=== PATIENT | female | born 1965 | race Caucasian/White ===

== ENCOUNTER → 2017-09-01 15:41 | Outpatient (REF) | payer BC, SELFPAY ==
[2017-09-01 16:16] LABS: Basophils % 0.5 % (0.1-2.0); Eosinophils # 0.1 K/mm3 (0.0-0.4); Hemoglobin 9.7 g/dL (12.2-16.2); Lymphocytes % 31.9 K/mm3 (10-50); Mean Corpuscular HGB Conc 31.4 g/dL (31.8-35.4); Mean Corpuscular Hemoglobin 22.9 pg (27.0-31.2); Mean Platelet Volume 7.3 fl (7.4-10.4); Monocytes # 0.5 K/mm3 (0.1-1.0); Monocytes % 7.8 % (1.7-9.3); Neutrophils # 3.7 K/mm3 (1.8-7.8); Neutrophils % 57.9 % (37.0-80.0); Platelet Count 444 K/mm3 (142-424); Red Blood Count 4.24 M/mm3 (4.20-5.40); Red Cell Distribution Width 14.8 % (11.5-17.5); White Blood Count 6.3 K/mm3 (4.8-10.8)
== END ==
LOC: LAB 15:41
PROVIDERS: Visit Provider Internal Medicine
DX: D50.9 Iron deficiency anemia, unspecified (principal)
CPT/HCPCS: 85025

== ENCOUNTER → 2018-01-07 15:34 | Outpatient (CLI) | payer BC, SELFPAY ==
--- NOTE | 2018-01-07 16:30 | MM_ITS ---
MM Dig screening mamm BI w/CAD CAD Screening COMPARISON: Digital mammograms with CAD 10/01/2016 and 02/14/2015 INDICATION: There is no personal or family history of breast cancer TECHNIQUE: Standard CC and MLO images were obtained. R2 CAD reviewed. FINDINGS: Moderate diffuse fibroglandular densities are seen in the central portions of both breast. Again noted is a biopsy clip left breast. There is no new or suspicious lesion in either breast and no suspicious microcalcifications. IMPRESSION: Moderate breast density with no suspicious lesion seen BI-RADS Category: 2 Benign Finding(s) RECOMMENDED FOLLOW-UP: 1YR - 1 YEAR FOLLOW-UP (A letter has been sent to the patient regarding results of the study.)
== END ==
PROVIDERS: PCP Internal Medicine; Visit Provider Internal Medicine
DX: Z12.31 Encounter for screening mammogram for malignant neoplasm of breast (principal)
CPT/HCPCS: 77067

== ENCOUNTER 2018-09-09 10:00 | Outpatient (RCR) | payer BC, SELFPAY | END 2018-09-21 08:39 | disposition home or self-care (01) | LOC: OT 10:00 | PROVIDERS: Visit Provider Orthopaedic Surgery Hand Surgery | DX: G56.03 Carpal tunnel syndrome, bilateral upper limbs (principal) | CPT/HCPCS: 97110; 97140; 97165 ==

== ENCOUNTER → 2019-01-19 08:15 | Outpatient (CLI) | payer BC, SELFPAY ==
--- NOTE | 2019-01-19 08:19 | MM_ITS ---
PROCEDURE: MM DIG SCREENING MAMM BI W/CAD Patient Age:53Y CLINICAL INDICATION: SCREENING No hormones, no new complaints. Noncontributory family history. Previous benign percutaneous mammotome biopsy breast left COMPARISON: DMSB DIG MAMM-SCREEN SAUL from 11/12/2013 DMDXUAVL DIG MAMM-DX UNI ADD VIEWS-LT from 12/02/2013 DMDXUL DIG MAMM-DX UNI-LT from 12/23/2013 DMSB DIG MAMM-SCREEN SAUL from 02/14/2015 DMSB DIG MAMM-SCREEN SAUL W/CAD from 10/01/2016 [facility] MM Dig screening mamm BI w/CAD from 01/07/2018 TECHNIQUE: Standard CC and MLO images were obtained. R2 CAD reviewed. FINDINGS: Prior films have become available in the new PACS system Heterogeneous breast moderately dense. The prior films are helpful in supporting stable mild asymmetry with no significant appearing new findings Left breast no new areas of significant concern. stable appearing minimal areas of focal density. Metallic clip from previous stereotactic biopsy 12 o'clock left breast Right breast: Stable with no new areas of significant concern bilateral follow-up 1 year recommended IMPRESSION: Stable bilateral mammogram. No new areas of significant concern either breast. . Bilateral follow-up 1 year recommended BI-RAD Category: 2 Benign Finding(s) FOLLOW-UP: 1YR 1 Year Follow-up (A letter has been sent to the patient regarding results of the study.) Dictated by: Hemant Wood MD 01/22/2019 11:35 Electronically signed by Hemant Wood MD in [place] 01/28/2019 09:10
== END ==
PROVIDERS: PCP Internal Medicine; Visit Provider Internal Medicine
DX: Z12.31 Encounter for screening mammogram for malignant neoplasm of breast (principal)
CPT/HCPCS: 77067

== ENCOUNTER → 2019-01-19 10:18 | Outpatient (POV) | payer BC, SELFPAY | PROVIDERS: Visit Provider Otolaryngology | DX: Z00.00 Encounter for general adult medical examination without abnormal findings (principal) ==

== ENCOUNTER → 2020-01-18 09:28 | Outpatient (CLI) | payer BC, SELFPAY ==
--- NOTE | 2020-01-18 09:34 | MM_ITS ---
PROCEDURE: MM DIG SCREENING MAMM BI W/CAD Digital Breast Tomosynthesis Included CLINICAL INDICATION: SCREENING There is no personal or family history of breast cancer. There has been a previous biopsy left breast for benign disease. COMPARISON: MG DMSB DIG MAMM-SCREEN SAUL W/CAD from 10/01/2016 MG [facility] MM Dig screening mamm BI w/CAD from 01/07/2018 MG MM DIG SCREENING MAMM BI W/CAD from 01/19/2019 TECHNIQUE: Standard CC and MLO images and 3D Tomosynthesis was obtained. R2 CAD reviewed. FINDINGS: Moderate slightly heterogenic fibroglandular densities are seen in both breasts and the findings are bilateral and symmetrical. There is a biopsy clip left breast. There is a stable benign-appearing nodular density central portion left breast. There is no suspicious lesion and no suspicious microcalcifications. IMPRESSION: Moderate somewhat heterogenic breast density with no suspicious lesions seen BI-RAD Category: 2 Benign Finding(s) FOLLOW-UP: 1YR 1 Year Follow-up (A letter has been sent to the patient regarding results of the study.) Dictated by: Dr. David Ennis MD 01/23/2020 11:30 Dr. David Ennis MD in [place] 01/23/2020 11:30
== END ==
PROVIDERS: PCP Internal Medicine; Visit Provider Internal Medicine
DX: Z12.31 Encounter for screening mammogram for malignant neoplasm of breast (principal)
CPT/HCPCS: 77063; 77067

== ENCOUNTER → 2020-01-28 15:46 | Outpatient (CLI) | payer BC, SELFPAY ==
--- NOTE | 2020-01-28 15:54 | XR_ITS ---
PROCEDURE: XR FOOT WT BEARING RT 3V CLINICAL INDICATION: foot pain COMPARISON: No exams were available for comparison FINDINGS: No fracture or dislocation. No lytic or blastic change. There is normal mineralization. The joint spaces are well-preserved. No significant degenerative/arthritic changes. No erosive changes evident. Other findings:There is a small calcaneal spur. Small enthesophyte noted at the Achilles insertion. IMPRESSION: No acute findings. Dictated by: Antolin Alvarez MD 01/28/2020 16:57 Antolin Alvarez MD in [place] 01/28/2020 16:57
--- NOTE | 2020-01-28 15:54 | XR_ITS ---
PROCEDURE: XR FOOT WT BEARING LT 3V CLINICAL INDICATION: foot pain COMPARISON: No exams were available for comparison FINDINGS: No fracture or dislocation. No lytic or blastic change. There is normal mineralization. There is a small spur along the plantar surface of the calcaneus. Normal alignment. No fracture or dislocation. Other findings:None. IMPRESSION: No acute findings. Dictated by: Antolin Alvarez MD 01/28/2020 16:56 Antolin Alvarez MD in [place] 01/28/2020 16:56
== END ==
PROVIDERS: PCP Internal Medicine; Visit Provider Podiatrist
DX: M79.673 Pain in unspecified foot (principal)
CPT/HCPCS: 73630

== ENCOUNTER → 2020-09-14 07:55 | Outpatient (CLI) | payer BC, SELFPAY ==
[2020-09-14 08:54] LABS: Basophils % 0.5 % (0.1-2.0); Eosinophils # 0.1 K/mm3 (0.0-0.4); Eosinophils % 2.6 % (0.1-12.0); Hematocrit 39.6 % (37.0-47.0); Hemoglobin 13.2 g/dL (12.2-16.2); Lymphocytes # 1.7 K/mm3 (0.7-4.5); Lymphocytes % 36.3 % (10-50); Mean Corpuscular HGB Conc 33.3 g/dL (31.8-35.4); Mean Corpuscular Hemoglobin 29.4 pg (27.0-31.2); Mean Corpuscular Volume 88.3 fl (81-99); Mean Platelet Volume 8.4 fl (7.4-10.4); Monocytes # 0.4 K/mm3 (0.1-1.0); Monocytes % 7.8 % (1.7-9.3); Neutrophils # 2.5 K/mm3 (1.8-7.8); Platelet Count 300 K/mm3 (142-424); Red Blood Count 4.48 M/mm3 (4.20-5.40); Red Cell Distribution Width 12.7 % (11.5-17.5); White Blood Count 4.7 K/mm3 (4.8-10.8)
[2020-09-14 11:51] LABS: Chloride 108 mmol/L (98-107)
[2020-09-14 11:52] LABS: Potassium 4.6 mmoL/L (3.5-5.1); Sodium 140 mmol/L (136-145)
[2020-09-14 11:54] LABS: Alanine Aminotransferase 13 U/L (12-78); Alkaline Phosphatase 122 U/L (38-126); Anion Gap 12.6 mEq/L (5-15); Aspartate Amino Transferase 22 U/L (14-36); Bilirubin,Total 0.5 mg/dl (0.2-1.3); Blood Urea Nitrogen 15 mg/dl (7-17); Carbon Dioxide 24 mmol/L (22.0-30.0); Cholesterol 189 mg/dl (140-200); Estimated Glomerular Filt Rate 103 ml/min (>60); GFR (African American) 125 ML/MIN (>60); Triglycerides 52 mg/dl (30-150); VLDL Cholesterol 10 mg/dL (0-40)
[2020-09-14 11:55] LABS: Albumin Level 4.1 g/dl (3.5-5.0); Albumin/Globulin Ratio 1.4 (1.1-1.8); Chol/HDL Ratio 2.9 (1-3.5); Globulin 2.9 g/dL (1.3-3.2); Glucose 98 mg/dl (74-100); HDL Cholesterol 65 mg/dl (40-60)
[2020-09-14 12:08] LABS: Direct LDL Cholesterol 96.48 mg/dL (100-129)
[2020-09-14 14:35] LABS: Ferritin 23.5 ng/ml (11.1-264)
== END ==
PROVIDERS: Visit Provider Internal Medicine
DX: I10 Essential (primary) hypertension (principal); E78.5 Hyperlipidemia, unspecified; Z86.2 Personal history of diseases of the blood and blood-forming organs and certain disorders involving the immune mechanism
CPT/HCPCS: 36415; 80053; 80061; 82728; 85025

== ENCOUNTER → 2021-02-09 17:04 | Outpatient (CLI) | payer BC, SELFPAY ==
[2021-02-09 18:06] LABS: Basophils % 0.4 % (0.1-2.0); Eosinophils # 0.1 K/mm3 (0.0-0.4); Eosinophils % 1.4 % (0.1-12.0); Hematocrit 40.9 % (37.0-47.0); Hemoglobin 13.2 g/dL (12.2-16.2); Lymphocytes # 2.4 K/mm3 (0.7-4.5); Lymphocytes % 29.5 % (10-50); Mean Corpuscular HGB Conc 32.2 g/dL (31.8-35.4); Mean Corpuscular Hemoglobin 29.9 pg (27.0-31.2); Mean Corpuscular Volume 92.9 fl (81-99); Mean Platelet Volume 10.2 fl (7.4-10.4); Monocytes # 0.6 K/mm3 (0.1-1.0); Monocytes % 7.2 % (1.7-9.3); Neutrophils % 61.6 % (37.0-80.0); Platelet Count 344 K/mm3 (142-424); Red Cell Distribution Width 13.5 % (11.5-17.5); White Blood Count 8.1 K/mm3 (4.8-10.8)
== END ==
PROVIDERS: Visit Provider Internal Medicine
DX: D50.9 Iron deficiency anemia, unspecified (principal)
CPT/HCPCS: 85025

== ENCOUNTER → 2021-02-16 15:12 | Outpatient (CLI) | payer BC, SELFPAY ==
--- NOTE | 2021-02-16 15:15 | MM_ITS ---
PROCEDURE INFORMATION: Exam: MG Bilateral Screening 3D Mammography Exam date and time: 02/16/2021 3:15 PM Age: 55 years old Clinical indication: Encounter for screening mammogram for malignant neoplasm of breast TECHNIQUE: Imaging protocol: Bilateral screening tomosynthesis and 2D mammography including computer-aided detection (CAD) when performed. COMPARISON: 1. MG MM DIG SCREENING MAMM BI W/CAD 01/18/2020 9:39 AM 2. MG MM DIG SCREENING MAMM BI W/CAD 01/19/2019 8:38 AM FINDINGS: MAMMOGRAPHY: Breast composition: The breast tissue is heterogeneously dense, which may obscure small masses. Mass: None. Architectural distortion: None. Calcifications: No suspicious calcifications. Asymmetric density: None. Skin thickening: None. Axillary adenopathy: None. IMPRESSION: No mammographic evidence of malignancy. Annual screening is recommended unless otherwise clinically indicated. ASSESSMENT: BI-RADS Category 1: Negative
== END ==
PROVIDERS: PCP Internal Medicine; Visit Provider Internal Medicine
DX: Z12.31 Encounter for screening mammogram for malignant neoplasm of breast (principal)
CPT/HCPCS: 77063; 77067

== ENCOUNTER → 2021-05-09 14:04 | Outpatient (CLI) | payer OTHER, SELFPAY | PROVIDERS: Visit Provider Nurse Practitioner | DX: U07.1 COVID-19 (principal) | CPT/HCPCS: C9803; U0003; U0005 ==

== ENCOUNTER → 2021-07-11 16:16 | Outpatient (CLI) | payer OTHER, SELFPAY | PROVIDERS: PCP Internal Medicine; Visit Provider Internal Medicine | DX: Z20.822 Contact with and (suspected) exposure to COVID-19 (principal) | CPT/HCPCS: C9803; U0003; U0005 ==

== ENCOUNTER 2021-12-27 08:49 | Emergency (ER) | payer OTHER, SELFPAY ==
--- NOTE | 2021-12-27 09:34 | XR_ITS ---
FINAL REPORT CLINICAL HISTORY: FALL FINDINGS: 3 views of the left wrist were obtained. There is no acute fracture or dislocation. There are mild degenerative changes. There is no soft tissue abnormality. IMPRESSION: No acute bony abnormality. Reviewed, Interpreted and Dictated by Cameron Silva III, MD Transcribed by Leon Hester Authenticated and [facility]
--- NOTE | 2021-12-27 09:34 | XR_ITS ---
FINAL REPORT CLINICAL HISTORY: FALL FINDINGS: Three views of the right knee reveal no evidence of fracture or dislocation. The bony alignment is normal. There are mild degenerative changes. There is no evidence of joint effusion. No localized soft tissue abnormality is identified. IMPRESSION: No acute bony abnormality identified. Reviewed, Interpreted and Dictated by Cameron Silva III, MD Transcribed by Leon Hester Authenticated and [facility]
--- NOTE | 2021-12-27 09:34 | XR_ITS ---
FINAL REPORT CLINICAL HISTORY: FALL FINDINGS: LEFT HAND: 3 views of the left hand were obtained. There is no acute fracture or dislocation. There are mild degenerative changes. Soft tissues are unremarkable. IMPRESSION: No acute bony abnormality. Reviewed, Interpreted and Dictated by Cameron Silva III, MD Transcribed by Leon Hester Authenticated and [facility]
--- NOTE | 2021-12-27 09:34 | XR_ITS ---
FINAL REPORT CLINICAL HISTORY: FALL, patient stated right carpal tunnel surgery on right hand/wrist in the past FINDINGS: 3 views of the right wrist were obtained. Irregularity of the dorsal distal radius seen on the lateral view is worrisome for a nondisplaced fracture. There are mild degenerative changes. There is no soft tissue abnormality. IMPRESSION: Irregularity of the dorsal distal radius worrisome for a nondisplaced fracture. Reviewed, Interpreted and Dictated by Cameron Silva III, MD Transcribed by Leon Hester Authenticated and . [facility]
--- NOTE | 2021-12-27 09:34 | XR_ITS ---
FINAL REPORT CLINICAL HISTORY: FALL, patient stated carpal tunnel surgery on right hand wrist in the past FINDINGS: 3 views of the right hand were obtained. There is no acute fracture or dislocation. There are mild degenerative changes. There is no soft tissue abnormality. IMPRESSION: No acute process. Reviewed, Interpreted and Dictated by Cameron Silva III, MD Transcribed by Leon Hester Authenticated and [facility]
--- NOTE | 2021-12-27 09:34 | XR_ITS ---
FINAL REPORT CLINICAL HISTORY: FALL FINDINGS: Three views of the left knee reveal no evidence of fracture or dislocation. The bony alignment is normal. There are mild degenerative changes. There is no evidence of joint effusion. No localized soft tissue abnormality is seen. IMPRESSION: No acute bony abnormality identified. Reviewed, Interpreted and Dictated by Cameron Silva III, MD Transcribed by Leon Hester Authenticated and [facility]
[2021-12-27 09:40] VITALS: BP 151/88; PULSE 81; RESP 20; TEMP 37; O2SAT 96; BMI 36.5
--- NOTE | 2021-12-27 10:07 | EXP.UTC ---
Discharge Plan Disposition Patient Disposition: Home, Self-Care Condition: Good Prescriptions Prescriptions: No Action losartan 100 mg tablet 100 mg PO DAILY 30 Days Qty: 30 polyethylene glycol 3350 17 gram/dose powder 17 gram PO DAILY 30 Days Qty: 527 ferrous sulfate [Feosol] 325 mg (65 mg iron) tablet 325 mg PO BID Referrals Follow up/Referrals: Hilton Walden MD [Primary Care Provider] - See instructions Isidro Edmonds DO [Staff Physician] - See instructions Activity Restrictions/Add. Instructions Additional Instructions/Restrictions: *weight bearing as tolerated *RICE, Rest the extremity, Ice 15-20 minutes 3-4 times daily, Compress- wear the niko wrap as discussed as much as possible to help reduce swelling and pain, Elevate the extremity when at rest *Niko wrap is for support and help control swelling, use it except in the shower. Be sure that is not to tight but not to loose either *Elevate when resting? *Ibuprofen as directed on package every 6-8 hours as needed for pain an inflammation. If need something more can take Tylenol in between doses of Ibuprofen to help Immediately follow up with your family doctor for new or worsening of symptoms, or no noticeable improvement over the next 3-5 days You may call back later this evening for the official reading of your xray Follow up with Orthopedics call office for appointment Clinical Impressions Clinical Impression: Fall Stand Alone Forms Stand Alone Forms: Work/School Release Instructions Patient Instructions: Contusion, How To Perform RICE (Rest, Ice, Compress, Elevate) Discharge ED Provider: Nahomi Shelton [facility] HPI General Stated complaint: AO@work 12/27/21 08:30 fell on knees and hands Mode of Arrival: Ambulatory Source of Information: Patient Limitations: No Limitations Time Seen by Provider: 12/27/21 10:07 Description of Symptoms (Recalled from Triage Doc. by RN): PATIENT REPORTS FALLING AT WORK THIS MORNING AND LANDING ON BOTH HANDS AND KNEES. DENIES ANY OTHER INJURIES HEENT Symptoms (Recalled from RN notes): No Resp Symptoms (Recalled from RN notes): No Skin Symptoms (Recalled from RN notes): No MS Symptoms (Recalled from RN notes): Yes Functional Status (Recalled from RN notes): WNL History of Present Illness Provider Complaint: Patient states that she was at work and tripped over a skid at work and fell and landed on both hands and knees States that she is having more pain in her left hand and right knee States that she has been able to move hands and wrist and has been walking but they wanted her to get it checked out Related Data Home Medications Medication Instructions Recorded Confirmed ferrous sulfate 325 mg (65 mg 325 mg PO BID Supplement 11/22/17 05/26/19 iron) tablet (Feosol) losartan 100 mg tablet 100 mg PO DAILY htn 30 days ##30 11/22/17 05/26/19 polyethylene glycol 3350 17 17 gram PO DAILY bowels 30 days 11/22/17 05/26/19 gram/dose oral powder ##527 Allergies Allergy/AdvReac Type Severity Reaction Status Date / Time No Known Allergies Allergy Verified 04/25/18 11:30 Worker's Comp Is this a Worker's Comp case?: No PFSH [facility] Medical History (Updated 12/27/21 @ 10:28 by Nahomi Shelton APRN) History of anemia Hypertension Migraine Surgical History (Updated 12/27/21 @ 09:51 by Nicol Christie RN) History of appendectomy History of section History of hysterectomy History of tubal ligation Social History (Updated 12/27/21 @ 09:51 by Nicol Christie RN) Smoking Status: Never smoker alcohol intake: never substance use type: denies use current occupational status: employed Travel in the last 8 weeks: None ROS Obtained: Yes All systems reviewed & no additional complaints except as documented and Yes Systems reviewed as appropriate & no additional complaints except as documented ENT Ears, Nose, Mouth, and Throat: Reports system reviewed and no additional complai
[2021-12-27 10:45] VITALS: BP 151/88; PULSE 81; RESP 20; TEMP 37; O2SAT 96
== END 2021-12-27 10:49 | disposition home or self-care (01) ==
LOC: ER 08:52 → UTC 08:52
PROVIDERS: Emergency Provider Nurse Practitioner; PCP Internal Medicine
DX: S89.82XA Other specified injuries of left lower leg, initial encounter; S69.82XA Other specified injuries of left wrist, hand and finger(s), initial encounter; W19.XXXA Unspecified fall, initial encounter; S89.81XA Other specified injuries of right lower leg, initial encounter; S69.81XA Other specified injuries of right wrist, hand and finger(s), initial encounter
CPT/HCPCS: 73110; 73130; 73562; 99213; G0463

== ENCOUNTER → 2022-02-19 11:09 | Outpatient (CLI) | payer OTHER, SELFPAY ==
--- NOTE | 2022-02-19 11:15 | MM_ITS ---
PROCEDURE INFORMATION: Exam: MG Bilateral Screening 3D Mammography Exam date and time: 02/19/2022 11:27 AM Age: 56 years old Clinical indication: Screening mammogram. TECHNIQUE: Imaging protocol: Bilateral Screening tomosynthesis and 2D mammography including computer-aided detection (CAD) when performed. COMPARISON: 1. MG MM DIG SCREENING MAMM BI W/CAD 02/16/2021 3:25 PM 2. MG MM DIG SCREENING MAMM BI W/CAD 01/18/2020 9:39 AM 3. MG MM DIG SCREENING MAMM BI W/CAD 01/19/2019 8:38 AM 4. MG [facility] MM Dig screening mamm BI w/CAD 01/07/2018 3:58 PM FINDINGS: MAMMOGRAPHY: Breast composition: The breast is heterogeneously dense, which may obscure small masses. Mass: Stable benign-appearing subcentimeter nodules are present in the left breast. No new or morphologically suspicious nodule has developed to suggest malignancy. Architectural distortion: No new or suspicious architectural distortion. Calcifications: No new or suspicious calcifications are present Asymmetric density: No new or suspicious asymmetric density is present Skin thickening: None. Axillary adenopathy: None. Other findings: Stable postoperative findings are present within the left breast. IMPRESSION: No mammographic evidence of malignancy. Recommend annual screening mammography unless otherwise clinically indicated. ASSESSMENT: BI-RADS category 2: Benign
== END ==
PROVIDERS: PCP Internal Medicine; Visit Provider Internal Medicine
DX: Z12.31 Encounter for screening mammogram for malignant neoplasm of breast (principal)
CPT/HCPCS: 77063; 77067

== ENCOUNTER → 2022-02-19 13:13 | Outpatient (CLI) | payer OTHER, SELFPAY ==
[2022-02-19 15:29] LABS: Basophils % 0.6 % (0.1-2.0); Eosinophils # 0.1 K/mm3 (0.0-0.4); Eosinophils % 1.9 % (0.1-12.0); Hematocrit 42.3 % (37.0-47.0); Hemoglobin 13.5 g/dL (12.2-16.2); Lymphocytes # 1.5 K/mm3 (0.7-4.5); Lymphocytes % 26.4 % (10-50); Mean Corpuscular Hemoglobin 29.7 pg (27.0-31.2); Mean Corpuscular Volume 92.9 fl (81-99); Mean Platelet Volume 9.1 fl (7.4-10.4); Monocytes # 0.5 K/mm3 (0.1-1.0); Neutrophils # 3.5 K/mm3 (1.8-7.8); Neutrophils % 62.1 % (37.0-80.0); Platelet Count 374 K/mm3 (142-424); Red Blood Count 4.55 M/mm3 (4.20-5.40); Red Cell Distribution Width 13.1 % (11.5-17.5); White Blood Count 5.6 K/mm3 (4.8-10.8)
[2022-02-19 15:46] LABS: Alanine Aminotransferase 18 U/L (12-78); Albumin Level 4.3 g/dl (3.5-5.0); Albumin/Globulin Ratio 1.6 (1.1-1.8); Alkaline Phosphatase 191 U/L (38-126); Anion Gap 16.8 mEq/L (5-15); Aspartate Amino Transferase 30 U/L (14-36); Bilirubin,Total 0.3 mg/dl (0.2-1.3); Blood Urea Nitrogen 18 mg/dl (7-17); Calcium 9.7 mg/dl (8.4-10.2); Carbon Dioxide 28 mmol/L (22.0-30.0); Chloride 101 mmol/L (98-107); Chol/HDL Ratio 3.1 (1-3.5); Cholesterol 206 mg/dl (140-200); Estimated Glomerular Filt Rate 86 ml/min (>60); GFR (African American) 104 ML/MIN (>60); Globulin 2.7 g/dL (1.3-3.2); Glucose 105 mg/dl (74-100); HDL Cholesterol 66 mg/dl (40-60); Potassium 4.8 mmoL/L (3.5-5.1); Sodium 141 mmol/L (136-145); Triglycerides 73 mg/dl (30-150); VLDL Cholesterol 15 mg/dL (0-40)
[2022-02-19 15:57] LABS: Direct LDL Cholesterol 104.45 mg/dL (100-129); Total Iron Binding Capacity 317 ug/dL (265-497)
[2022-02-19 16:48] LABS: Iron 69 ug/dL (37-170)
== END ==
PROVIDERS: PCP Internal Medicine; Visit Provider Internal Medicine
DX: Z00.01 Encounter for general adult medical examination with abnormal findings (principal); I10 Essential (primary) hypertension; D50.9 Iron deficiency anemia, unspecified; E78.5 Hyperlipidemia, unspecified; N95.1 Menopausal and female climacteric states
CPT/HCPCS: 80053; 80061; 83540; 83550; 85025

== ENCOUNTER → 2022-03-08 15:06 | Outpatient (CLI) | payer OTHER, SELFPAY ==
--- NOTE | 2022-03-08 15:10 | CT_ITS ---
FINAL REPORT TECHNIQUE: Axial CT images were performed through the head. Coronal reformatted images were submitted. This study was performed with techniques to keep radiation doses as low as reasonably achievable (ALARA). Individualized dose reduction techniques using automated exposure control or adjustment of mA and/or kV according to the patient's size were employed. CLINICAL HISTORY: MIGRAINES FINDINGS: The ventricles are normal in size. There is no evidence of hemorrhage. There is no mass or edema identified. There is no abnormal extra-axial fluid seen. The sinuses are well aerated. IMPRESSION: No acute intracranial process. Reviewed, Interpreted and Dictated by Placido Pete MD Transcribed by Leon Hester Authenticated and [facility]
== END ==
PROVIDERS: PCP Internal Medicine; Visit Provider Internal Medicine
DX: G43.809 Other migraine, not intractable, without status migrainosus (principal)
CPT/HCPCS: 70450

== ENCOUNTER → 2023-03-25 15:09 | Outpatient (CLI) | payer OTHER, SELFPAY ==
--- NOTE | 2023-03-25 15:13 | MM_ITS ---
PROCEDURE INFORMATION: Exam: MG Bilateral Screening 3D Mammography Exam date and time: 03/25/2023 3:08 PM Age: 57 years old Clinical indication: Screening examination TECHNIQUE: Imaging protocol: Bilateral Screening tomosynthesis and 2D mammography including computer-aided detection (CAD) when performed. COMPARISON: 1. MG MM DIG SCREENING MAMM BI W/CAD 02/19/2022 11:27 AM 2. MG MM DIG SCREENING MAMM BI W/CAD 02/16/2021 3:25 PM FINDINGS: MAMMOGRAPHY: Breast composition: There are scattered areas of fibroglandular density. Mass: No new or suspicious masses Architectural distortion: None. Calcifications: No suspicious calcifications. Asymmetric density: None. Skin thickening: None. Axillary adenopathy: None. IMPRESSION: No mammographic evidence of malignancy. Annual screening is recommended unless otherwise clinically indicated. ASSESSMENT: BI-RADS Category 1: Negative
== END ==
PROVIDERS: PCP Internal Medicine; Visit Provider Internal Medicine
DX: Z12.31 Encounter for screening mammogram for malignant neoplasm of breast (principal)
CPT/HCPCS: 77063; 77067

== ENCOUNTER 2023-04-28 17:08 | Outpatient (CLI) | payer OTHER, SELFPAY ==
[2023-04-28 19:46] LABS: Basophils % 0.3 % (0.1-2.0); Eosinophils # 0.1 K/mm3 (0.0-0.4); Eosinophils % 1.7 % (0.1-12.0); Hematocrit 28.2 % (37.0-47.0); Hemoglobin 8.4 g/dL (12.2-16.2); Lymphocytes % 25.3 % (10-50); Mean Corpuscular HGB Conc 29.8 g/dL (31.8-35.4); Mean Corpuscular Volume 63.7 fl (81-99); Mean Platelet Volume 8.2 fl (7.4-10.4); Monocytes # 0.6 K/mm3 (0.1-1.0); Monocytes % 7.8 % (1.7-9.3); Neutrophils # 5.2 K/mm3 (1.8-7.8); Platelet Count 470 K/mm3 (142-424); Red Blood Count 4.43 M/mm3 (4.20-5.40); Red Cell Distribution Width 19.2 % (11.5-17.5)
== END 2023-04-28 23:59 ==
LOC: LAB.DROPOF 17:09
PROVIDERS: PCP Internal Medicine; Visit Provider Internal Medicine
DX: K21.9 Gastro-esophageal reflux disease without esophagitis (principal); D50.9 Iron deficiency anemia, unspecified; I10 Essential (primary) hypertension
CPT/HCPCS: 85025

== ENCOUNTER 2023-05-30 16:51 | Outpatient (CLI) | payer OTHER, SELFPAY ==
[2023-05-30 17:28] LABS: Basophils % 0.3 % (0.1-2.0); Eosinophils # 0.1 K/mm3 (0.0-0.4); Eosinophils % 2.1 % (0.1-12.0); Hematocrit 37.9 % (37.0-47.0); Hemoglobin 12.2 g/dL (12.2-16.2); Lymphocytes # 1.6 K/mm3 (0.7-4.5); Lymphocytes % 28.3 % (10-50); Mean Corpuscular HGB Conc 32.1 g/dL (31.8-35.4); Mean Corpuscular Hemoglobin 23.9 pg (27.0-31.2); Mean Corpuscular Volume 74.6 fl (81-99); Mean Platelet Volume 8.8 fl (7.4-10.4); Monocytes # 0.5 K/mm3 (0.1-1.0); Monocytes % 9.4 % (1.7-9.3); Neutrophils # 3.3 K/mm3 (1.8-7.8); Neutrophils % 60.1 % (37.0-80.0); Platelet Count 329 K/mm3 (142-424); Red Blood Count 5.08 M/mm3 (4.20-5.40); White Blood Count 5.5 K/mm3 (4.8-10.8)
[2023-05-30 17:29] LABS: Red Cell Distribution Width 28.4 % (11.5-17.5)
== END 2023-05-30 23:59 ==
LOC: LAB.DROPOF 16:52
PROVIDERS: PCP Internal Medicine; Visit Provider Internal Medicine
DX: D50.9 Iron deficiency anemia, unspecified (principal)
CPT/HCPCS: 85025

== ENCOUNTER 2024-03-02 09:30 | Outpatient (CLI) | payer OTHER, SELFPAY ==
[2024-03-02 16:26] LABS: Basophils % 0.7 % (0.1-2.0); Eosinophils # 0.1 K/mm3 (0.0-0.4); Hematocrit 43.5 % (37.0-47.0); Hemoglobin 14.2 g/dL (12.2-16.2); Lymphocytes # 1.7 K/mm3 (0.7-4.5); Lymphocytes % 29.6 % (10-50); Mean Corpuscular HGB Conc 32.6 g/dL (31.8-35.4); Mean Corpuscular Hemoglobin 30.7 pg (27.0-31.2); Mean Corpuscular Volume 94.2 fl (81-99); Mean Platelet Volume 9.3 fl (7.4-10.4); Monocytes # 0.5 K/mm3 (0.1-1.0); Monocytes % 8.1 % (1.7-9.3); Neutrophils # 3.4 K/mm3 (1.8-7.8); Neutrophils % 59.6 % (37.0-80.0); Platelet Count 317 K/mm3 (142-424); Red Blood Count 4.62 M/mm3 (4.20-5.40); Red Cell Distribution Width 13.2 % (11.5-17.5); White Blood Count 5.7 K/mm3 (4.8-10.8)
[2024-03-02 17:02] LABS: Alanine Aminotransferase 18 U/L (12-78); Albumin Level 4.4 g/dl (3.5-5.0); Albumin/Globulin Ratio 1.8 (1.1-1.8); Alkaline Phosphatase 121 U/L (38-126); Anion Gap 13.2 mEq/L (5-15); Aspartate Amino Transferase 32 U/L (14-36); Bilirubin,Total 0.6 mg/dl (0.2-1.3); Blood Urea Nitrogen 19 mg/dl (7-17); Calcium 8.8 mg/dl (8.4-10.2); Carbon Dioxide 26 mmol/L (22.0-30.0); Chloride 106 mmol/L (98-107); Chol/HDL Ratio 2.8 (1-3.5); Cholesterol 190 mg/dl (140-200); Estimated Glomerular Filt Rate 64 ml/min (>60); GFR (African American) 77 ML/MIN (>60); Globulin 2.4 g/dL (1.3-3.2); Glucose 72 mg/dl (74-100); HDL Cholesterol 69 mg/dl (40-60); Potassium 4.2 mmoL/L (3.5-5.1); Sodium 141 mmol/L (136-145); Total Protein,Serum 6.8 g/dl (6.3-8.2); Triglycerides 74 mg/dl (30-150); VLDL Cholesterol 15 mg/dL (0-40)
[2024-03-02 17:14] LABS: Total Iron Binding Capacity 302 ug/dL (265-497)
[2024-03-02 17:53] LABS: Iron 150 ug/dL (37-170)
== END 2024-03-02 23:59 | disposition home or self-care (01) ==
LOC: LAB.DROPOF 03-03 10:22
PROVIDERS: PCP Internal Medicine; Visit Provider Internal Medicine
DX: E78.5 Hyperlipidemia, unspecified (principal); D50.9 Iron deficiency anemia, unspecified; I10 Essential (primary) hypertension
CPT/HCPCS: 80053; 80061; 83540; 83550; 85025

== ENCOUNTER 2024-03-29 16:39 | Outpatient (CLI) | payer OTHER, SELFPAY ==
--- NOTE | 2024-03-29 16:40 | MM_ITS ---
PROCEDURE INFORMATION: Exam: MG Bilateral Screening 3D Mammography Exam date and time: 03/29/2024 4:39 PM Age: 58 years old Clinical indication: Screening examination TECHNIQUE: Imaging protocol: Bilateral Screening tomosynthesis and 2D mammography including computer-aided detection (CAD) when performed. COMPARISON: 1. MG MM DIG SCREENING MAMM BI W/CAD 03/25/2023 3:08 PM 2. MG MM DIG SCREENING MAMM BI W/CAD 02/19/2022 11:27 AM FINDINGS: MAMMOGRAPHY: Breast composition: There are scattered areas of fibroglandular density. Mass: None. Architectural distortion: None. Calcifications: No suspicious calcifications. Asymmetric density: None. Skin thickening: None. Axillary adenopathy: None. IMPRESSION: No mammographic evidence of malignancy. Annual screening is recommended unless otherwise clinically indicated. ASSESSMENT: BI-RADS Category 1: Negative.
== END 2024-03-29 23:59 | disposition home or self-care (01) ==
LOC: RAD 16:40
PROVIDERS: PCP Internal Medicine; Visit Provider Internal Medicine
DX: Z12.31 Encounter for screening mammogram for malignant neoplasm of breast (principal)
CPT/HCPCS: 77063; 77067

== ENCOUNTER 2024-05-06 16:28 | Outpatient (CLI) | payer OTHER, SELFPAY ==
--- NOTE | 2024-05-06 16:33 | XR_ITS ---
FINAL REPORT CLINICAL HISTORY: Left wrist pain FINDINGS: LEFT WRIST Three views show no evidence of an acute, displaced fracture or dislocation of the visualized bony architecture. The joint spaces appear normal. IMPRESSION: Unremarkable exam. Reviewed, Interpreted and Dictated by Andrea Stephens MD Transcribed by Melanie Sierra Authenticated and [facility]
== END 2024-05-06 23:59 | disposition home or self-care (01) ==
LOC: RAD 16:29
PROVIDERS: PCP Internal Medicine; Visit Provider Physician Assistant
DX: G56.02 Carpal tunnel syndrome, left upper limb (principal)
CPT/HCPCS: 73110

== ENCOUNTER 2024-06-17 16:57 | Outpatient (CLI) | payer OTHER, SELFPAY ==
[2024-06-17 16:48] LABS: Basophils % 0.5 % (0.1-2.0); Eosinophils # 0.2 K/mm3 (0.0-0.4); Eosinophils % 2.7 % (0.1-12.0); Hematocrit 39.3 % (37.0-47.0); Hemoglobin 12.9 g/dL (12.2-16.2); Lymphocytes # 1.6 K/mm3 (0.7-4.5); Lymphocytes % 26.3 % (10-50); Mean Corpuscular HGB Conc 32.8 g/dL (31.8-35.4); Mean Corpuscular Hemoglobin 29.9 pg (27.0-31.2); Mean Corpuscular Volume 91.2 fl (81-99); Mean Platelet Volume 10.8 fl (7.4-10.4); Monocytes # 0.7 K/mm3 (0.1-1.0); Monocytes % 11.2 % (1.7-9.3); Neutrophils # 3.5 K/mm3 (1.8-7.8); Neutrophils % 58.8 % (37.0-80.0); Platelet Count 306 K/mm3 (142-424); Red Blood Count 4.31 M/mm3 (4.20-5.40)
== END 2024-06-17 23:59 | disposition home or self-care (01) ==
LOC: LAB.DROPOF 16:57
PROVIDERS: PCP Internal Medicine; Visit Provider Internal Medicine
DX: K62.5 Hemorrhage of anus and rectum (principal); D50.9 Iron deficiency anemia, unspecified
CPT/HCPCS: 85025

== ENCOUNTER 2024-09-28 09:12 | Day surgery (SDC) | payer OTHER, SELFPAY ==
[2024-09-28 09:33] VITALS: BMI 35.4
[2024-09-28 09:38] VITALS: BP 137/103; PULSE 114; RESP 16; TEMP 36.3; O2SAT 96
[2024-09-28] MEDS: LACTATED RINGERS 1000ML 1,000 ML 50 ML IV (09:43)
--- NOTE | 2024-09-28 10:08 | P.HP_ITS ---
HPI HPI HPI: This is a 58-year-old female who reports for colonoscopy. She was recently seen in the gastroenterology office and scheduled for colonoscopy. Secondary to insurance coverage complex she was rescheduled to be completed by the surgical service. She reports a history of colon polyps in addition to recent bright red blood per rectum. Forwarded from recent gastroenterology outpatient office visit: Mrs. Lambert is a 58-year-old female who is referred to us because of bright red rectal bleeding. This can occur sometimes infrequently but can last for almost a week. She does note bright red blood primarily on the tissue and this does not occur with her bowel movements. She has no anorectal pain. The patient does state that she has had 2 prior colonoscopies with me but the report is not available in the [employer] computer system. There is no pathology reports either. This has been more than 5 to 7 years ago. The patient reports regular bowel function with no abdominal pain or weight loss. The patient reports no family history of colon cancer. The patient does take a stool softener and reports regular bowel function. However, she does have excessive wiping. The patient has been Hemoccult negative on different occasions in the past in 2017 but not recently. The patient did have borderline iron deficiency previously but her recent hemoglobin/hematocrit was normal at 12.9 and 39.3 (May 2024). In April 2023 her hemoglobin hematocrit were 8.4 and 28.2 with MCV of 63.7. She has been on an iron supplement since that time. [facility] Disclaimer: The information contained in this section may have been updated after the patient was seen, as this information can be updated by other users. Medical History (Updated 09/28/24 @ 10:10 by Juan Durant MD) History of carpal tunnel syndrome History of iron deficiency anemia History of anemia Migraine Hypertension Surgical History History of tubal ligation History of hysterectomy History of section History of appendectomy Family History Thyroid cancer Mother Bladder cancer Father Social History Smoking Status: Never smoker alcohol intake: never substance use type: denies use current occupational status: retired Travel in the last 8 weeks?: None Have you lived/traveled outside US in past 30 days?: No Contact w/someone who lives/traveled outside US past 30 days?: No Exposure to someone with infectious disease in past 14 days?: No Do you have a fever (greater than 100.4 F or 38 C)?: No Have you tested positive for COVID-19?: No Exposed to someone with COVID-19 in past 14 days?: No Do you have a sore throat?: No Do you have a cough?: No Do you have any weakness?: No Do you have any diarrhea?: No Are you experiencing any unusual bleeding?: No Do you have any muscle aches/pain?: No Do you have any abdominal pain?: No Are you experiencing loss of taste or smell?: No Other Medical History Have you received the Flu Vaccine for this season: No Have you received the Pneumonia Vaccine: Yes Review of Systems Review of Systems Review of systems:: pertinent systems reviewed and negative unless documented below *Gastrointestinal Gastrointestinal: Reports as per [facility] Meds Home Medications and Allergies Home Medications ?Medication ?Instructions ?Recorded ?Confirmed ?Type losartan 100 mg tablet 100 mg PO DAILY htn 30 days #90 04/05/24 09/28/24 Rx tabs ferrous sulfate 325 mg (65 mg See Rx Instructions .Rou te 04/06/24 09/28/24 Rx iron) tablet (FeroSul) .COMPLEX #180 tabs docusate sodium 50 mg capsule 50 mg PO DAILY 08/10/24 09/28/24 History (Stool Softener) New Prescriptions to Start Prescriptions: Allergies Allergy/AdvReac Type Severity Reaction Status Date / Time No Known Allergies Allergy Verified 08/10/24 08:51 Exam Data for Last 24 hours Vital signs and Labs for Last 24 Hours: Temp Pulse Resp BP Pulse Ox O2 Del Method 97.4 F L 114 H 16 137/103 H 96 Room Air 09/28/24 09:38 09/28/24 09:38 09/28/24 09:38 09/28/24 09:38 09/28/24 09:38 09/28/24 09:38 I & O for Last 24 hours: Intake & Output 09/25/24 09/26/24 09/27/24 09/28/24 11:59 11:59 11:59 11:59 Weight 200 lb Constitutional Constitutional: no acute distress *Routine HEENT Exam Head: Present normocephalic Eye: Present EOMI ENT: Present mucous membranes moist *Routine Neck Exam Neck: Present full ROM *Routine Respiratory Exam Respiratory: Absent respiratory distress *Routine Cardiovascular Exam Cardiovascular: Absent tachycardia *Routine Abdominal Exam Abdominal: Present soft *Routine Rectal Exam Rectal:: deferred *Routine Genitalia Exam Genitalia:: deferred *Routine Extremities Exam Extremities: Present full ROM *Routine Skin Exam Skin: Absent erythema *Routine Neurological Exam Neurological: Present alert Assessment and Plan *Assessment and plan (1) Bright red rectal bleeding: Status: Acute Category: Medical Code(s): K62.5 - Hemorrhage of anus and rectum (2) History of colon polyps: Status: Acute Category: Medical Code(s): Z86.0100 - Personal history of colon polyps, unspecified Plan Colonoscopy today I have discussed the risks and benefits including, but not limited to: Bleeding Infection Damage to surrounding tissue Inherent risks of sedation The patient agrees to proceed.
--- NOTE | 2024-09-28 10:11 | HMH.SCOPE ---
Procedure: Date: 09/28/24 Patient Date of :: 1965 Procedure Performed:: Colonoscopy with polypectomy Indications:: History of polyps Bright red blood per rectum NOTE: This is a 58-year-old female who reports for colonoscopy. She was recently seen in the gastroenterology office and scheduled for colonoscopy. Secondary to insurance coverage complex she was rescheduled to be completed by the surgical service. She reports a history of colon polyps in addition to recent bright red blood per rectum. Forwarded from recent gastroenterology outpatient office visit: Mrs. Lambert is a 58-year-old female who is referred to us because of bright red rectal bleeding. This can occur sometimes infrequently but can last for almost a week. She does note bright red blood primarily on the tissue and this does not occur with her bowel movements. She has no anorectal pain. The patient does state that she has had 2 prior colonoscopies with me but the report is not available in the [employer] computer system. There is no pathology reports either. This has been more than 5 to 7 years ago. The patient reports regular bowel function with no abdominal pain or weight loss. The patient reports no family history of colon cancer. The patient does take a stool softener and reports regular bowel function. However, she does have excessive wiping. The patient has been Hemoccult negative on different occasions in the past in 2016 but not recently. The patient did have borderline iron deficiency previously but her recent hemoglobin/hematocrit was normal at 12.9 and 39.3 (May 2024). In April 2023 her hemoglobin hematocrit were 8.4 and 28.2 with MCV of 63.7. She has been on an iron supplement since that time. Performing Provider:: Juan Durant MD Referring Provider:: . Sedation:: Monitored anesthesia care Procedure:: After informed consent was obtained the patient was taken to the endoscopy suite. Sedation ensued after the patient was transferred to the left lateral decubitus position. Pulse, blood pressure, and oxygen saturation were monitored throughout the procedure. Digital rectal exam revealed no significant abnormality. The colonoscope was placed in position. The entire colon was evaluated. The colonoscope was carefully removed and the patient was transferred to recovery in stable condition. Please see findings and specimens below for detail. Findings:: Bowel preparation fair to moderate Significant spasticity/lack of relaxation Internal and external hemorrhoidal cushions without evidence of active bleeding or thrombosis Polyps (see specimens) Specimens:: Adjacent small sessile polyps at 65 cm (cold biopsy forceps) Adjacent small sessile polyps at 55 cm (cold biopsy forceps) Recommendations:: Timing of repeat colonoscopy is pending pathology but likely be between 3-5 years. 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 Discussion with regard to hemorrhoids will be ongoing. The patient has combined internal/external cushions with likely recent bleeding. Further treatment (possible surgical excision secondary to internal/external nature) to be determined based upon response to medical therapy. Complications:: No immediate Estimated blood obtained (mL): 1 Colonoscopy Component Colonoscopy Component Was a colonoscopy performed during today's procedure?: Yes Recommended follow up colonoscopy of at least 10 years?: No If no, follow up colonoscopy recommended in ___ years?: (See above) Reason for not recommending >/= 10 yr follow-up interval?: (See above)
--- NOTE | 2024-09-28 10:14 | P.PNANES_ITS ---
[facility] Disclaimer: The information contained in this section may have been updated after the patient was seen, as this information can be updated by other users. Medical History (Updated 09/28/24 @ 10:10 by Juan Durant MD) History of carpal tunnel syndrome History of iron deficiency anemia History of anemia Migraine Hypertension Surgical History History of tubal ligation History of hysterectomy History of section History of appendectomy Family History Father Bladder cancer Mother Thyroid cancer Social History Smoking Status: Never smoker alcohol intake: never substance use type: denies use current occupational status: retired Travel in the last 8 weeks?: None Have you lived/traveled outside [place] in past 30 days?: No Contact w/someone who lives/traveled outside US past 30 days?: No Exposure to someone with infectious disease in past 14 days?: No Do you have a fever (greater than 100.4 F or 38 C)?: No Have you tested positive for COVID-19?: No Exposed to someone with COVID-19 in past 14 days?: No Do you have a sore throat?: No Do you have a cough?: No Do you have any weakness?: No Do you have any diarrhea?: No Are you experiencing any unusual bleeding?: No Do you have any muscle aches/pain?: No Do you have any abdominal pain?: No Are you experiencing loss of taste or smell?: No [facility] Anesthesia Checklist Patient Identification Patient Identification: Arm Band Structural Data Admitted From: Home Planned Operative Procedure/s: Colonoscopy Consent for Planned Operative Procedure(s) Verified: Yes Verified Documents: Surgical Consent and History and Physical NPO Status Verified Time NPO: 06:30 (finished prep) Additional verifications Anesthesia Reactions: No Airway Assessment Mallampati Score:: Class II C-Spine Mobility Assessed: Yes TMJ Mobility Assessed: Yes Dentition: Good Dentition Neurological Assessment Level of Consciousness: Awake, Alert and Appropriate Anesthesia Plan Anesthesia Risk discussed: Yes Anesthesia Plan: Verified ASA Class: II Anesthesia Type: MAC
[2024-09-28 11:01] VITALS: BP 131/86; PULSE 91; RESP 18; TEMP 36.2; O2SAT 96
[2024-09-28 11:11] VITALS: BP 125/87; PULSE 95; RESP 18; O2SAT 96
[2024-09-28 11:21] VITALS: BP 138/84; PULSE 97; RESP 18; O2SAT 97
[2024-09-28 11:31] VITALS: BP 116/92; PULSE 98; RESP 16; O2SAT 98
== END 2024-09-28 11:40 | disposition home or self-care (01) ==
PROVIDERS: PCP Internal Medicine; Visit Provider Surgery
PROC: 0DJD8ZZ Inspection of Lower Intestinal Tract, Via Natural or Artificial Opening Endoscopic (ICD-10-PCS; CPT 45380; principal; 2024-09-28 10:10)
DX: K64.8 Other hemorrhoids (principal); K64.4 Residual hemorrhoidal skin tags; K58.9 Irritable bowel syndrome, unspecified; D12.6 Benign neoplasm of colon, unspecified; K63.5 Polyp of colon; E61.1 Iron deficiency; I10 Essential (primary) hypertension; Z86.0100 Personal history of colon polyps, unspecified; Z90.49 Acquired absence of other specified parts of digestive tract; Z79.899 Other long term (current) drug therapy
CPT/HCPCS: 45380; J2003; J2704; J7120

== ENCOUNTER 2024-12-03 09:56 | Outpatient (CLI) | payer OTHER, SELFPAY ==
--- NOTE | 2024-12-03 09:58 | XR_ITS ---
FINAL REPORT CLINICAL HISTORY: Evaluation of Left Foot Skin Lesion marker placed where knot is pt stated pain around knot when walking some FINDINGS: Left foot THREE VIEW FINDINGS: Three views show no evidence of an acute, displaced fracture or dislocation of the visualized bony architecture. The joint spaces appear normal. Mild plantar calcaneal spurring is noted. No bone destruction is seen at the site of the reported skin lesion near the 5th metatarsal. IMPRESSION: Unremarkable exam. Authenticated and ERN
== END 2024-12-03 23:59 | disposition home or self-care (01) ==
LOC: RAD 09:56
PROVIDERS: PCP Internal Medicine; Visit Provider Internal Medicine
DX: L98.9 Disorder of the skin and subcutaneous tissue, unspecified (principal)
CPT/HCPCS: 73630

== ENCOUNTER 2025-03-08 10:00 | Outpatient (CLI) | payer OTHER, SELFPAY ==
[2025-03-08 15:18] LABS: Hematocrit 42.1 % (37.0-47.0); Hemoglobin 13.8 g/dL (12.2-16.2); Immature Granulocytes % 0.2 %; Mean Corpuscular HGB Conc 32.8 g/dL (31.8-35.4); Mean Corpuscular Hemoglobin 29.9 pg (27.0-31.2); Mean Corpuscular Volume 91.1 fl (81-99); Nucleated Red Blood Cells % 0 %; Platelet Count 286 K/mm3 (142-424); Red Blood Count 4.62 M/mm3 (4.20-5.40); Red Cell Distribution Width-SD 40.0 fL; White Blood Count 4.8 K/mm3 (4.8-10.8)
[2025-03-08 16:00] LABS: Alanine Aminotransferase 15 U/L (12-78); Albumin Level 4.4 g/dl (3.5-5.0); Albumin/Globulin Ratio 1.7 (1.1-1.8); Alkaline Phosphatase 139 U/L (38-126); Anion Gap 11.6 mEq/L (5-15); Aspartate Amino Transferase 27 U/L (14-36); Bilirubin,Total 0.5 mg/dl (0.2-1.3); Blood Urea Nitrogen 15 mg/dl (7-17); Calcium 9.3 mg/dl (8.4-10.2); Carbon Dioxide 24 mmol/L (22.0-30.0); Chloride 105 mmol/L (98-107); Cholesterol 181 mg/dl (140-200); Creatinine,Serum 0.70 mg/dl (0.52-1.04); Estimated Glomerular Filt Rate 85 ml/min (>60); GFR (African American) 103 ML/MIN (>60); Globulin 2.6 g/dL (1.3-3.2); Glucose 84 mg/dl (74-100); HDL Cholesterol 62 mg/dl (40-60); Potassium 4.6 mmoL/L (3.5-5.1); Sodium 136 mmol/L (136-145); Total Protein,Serum 7.0 g/dl (6.3-8.2); Triglycerides 78 mg/dl (30-150)
--- OUTSIDE RECORDS SUMMARY | 2025-03-09 13:07 | XMS_ITS ---
Author Organization Unknown ENCOUNTERS Encounter Performer Location Date Diagnosis Diagnosis Status Emergency [place] [id number] [facility] [address] [place] [address] [id number] [facility] *Note: Encounters from your own facility or health system may be excluded. Allergies, Adverse Reactions, Alerts Allergen Type Severity Identification Date Medications Name Date Quantity Days Supplied GPI Number
== END 2025-03-08 23:59 | disposition home or self-care (01) ==
LOC: LAB.DROPOF 03-09 12:11
PROVIDERS: PCP Internal Medicine; Visit Provider Internal Medicine
DX: D50.9 Iron deficiency anemia, unspecified (principal); I10 Essential (primary) hypertension; E78.5 Hyperlipidemia, unspecified
CPT/HCPCS: 80053; 80061; 85025

== ENCOUNTER 2025-04-01 10:02 | Outpatient (CLI) | payer OTHER, SELFPAY ==
--- NOTE | 2025-04-01 10:30 | MM_ITS ---
PROCEDURE INFORMATION: Exam: MG Bilateral Screening 3D Mammography Exam date and time: 04/01/2025 10:09 AM Age: 59 years old Clinical indication: Screening exam. TECHNIQUE: Imaging protocol: Bilateral Screening tomosynthesis and 2D mammography including computer-aided detection (CAD) when performed. COMPARISON: 1. MG MM DIG SCREENING MAMM BI W/CAD 03/29/2024 4:39 PM 2. MG MM DIG SCREENING MAMM BI W/CAD 03/25/2023 3:08 PM FINDINGS: MAMMOGRAPHY: Breast composition: There are scattered areas of fibroglandular density. Mass: No suspicious masses. Architectural distortion: None. Calcifications: No suspicious calcifications. Asymmetric density: None. Skin thickening: None. Axillary adenopathy: None. IMPRESSION: No mammographic evidence of malignancy. Annual screening is recommended unless otherwise clinically indicated. ASSESSMENT: BI-RADS Category 1: Negative.
== END 2025-04-01 23:59 | disposition home or self-care (01) ==
LOC: RAD 10:03
PROVIDERS: PCP Internal Medicine; Visit Provider Internal Medicine
DX: Z12.31 Encounter for screening mammogram for malignant neoplasm of breast (principal); R92.323 Mammographic fibroglandular density, bilateral breasts
CPT/HCPCS: 77063; 77067